=== PATIENT | male | born 1985 | race Caucasian/White ===

== ENCOUNTER 2017-05-08 19:41 | Emergency (ER) | payer OTHER ==
[~2017-05-08] VITALS: Ht 165.1 cm; Wt 72.6 kg
[2017-05-08 19:45] VITALS: BP 126/77
[2017-05-08] MEDS ORDERED: TDAP [DIPH/PERTUSSIS/TET] 0.5 ML VIAL IM ONE ×2 (19:51→20:00)
[2017-05-08] MEDS ORDERED: BACI/NEOM/POLY B OINT PKT 1 UDPKT PACKET TP ONE (20:00)
== END 2017-05-08 20:23 | disposition home or self-care (01) ==
LOC: ER 19:45
DX: S01.01XA Laceration without foreign body of scalp, initial encounter (principal); F10.10 Alcohol abuse, uncomplicated; W20.8XXA Other cause of strike by thrown, projected or falling object, initial encounter; Y93.E9 Activity, other interior property and clothing maintenance; Y92.89 Other specified places as the place of occurrence of the external cause; Y99.8 Other external cause status
CPT/HCPCS: 90715; A4606; A6402; Z7610

== ENCOUNTER 2017-08-11 21:02 | Emergency (ER) | payer OTHER ==
[~2017-08-11] VITALS: Ht 165.1 cm; Wt 81.6 kg
[2017-08-11 21:11] VITALS: BP 154/89
[2017-08-11] MEDS ORDERED: KETOROLAC TROMETHAMINE INJ 30 MG/ML VIAL ONE (21:57)
[2017-08-11] MEDS ORDERED: HYDROCODONE/APAP 5/325MG 1 EACH TABLET ONE (21:58)
[2017-08-11] MEDS ORDERED: HYDROCODONE/APAP 5/325MG 1 EACH TABLET PO ONE (22:00)
[2017-08-11] MEDS ORDERED: KETOROLAC TROMETHAMINE INJ 60 MG/2 ML VIAL IM ONE (22:00)
== END 2017-08-11 22:14 | disposition home or self-care (01) ==
LOC: ER 21:03
DX: M54.5 Low back pain (principal); M62.830 Muscle spasm of back; F10.10 Alcohol abuse, uncomplicated; Y90.9 Presence of alcohol in blood, level not specified
CPT/HCPCS: A4606; J1885; Z7610